=== PATIENT | female | born 1990 | race African-American/Black ===

== ENCOUNTER 2024-05-19 08:48 | Emergency (ER) | payer OTHER ==
[2024-05-19 08:57] VITALS: BP 126/86; PULSE 90; RESP 19; TEMP 98.8; BMI 31.3
[2024-05-19] MEDS ORDERED: IBUPROFEN 600 MG TABLET (FP) PO ONE (09:07)
[2024-05-19] MEDS: IBUPROFEN 600 MG TABLET (FP) PO ONE (10:00)
[2024-05-19 12:12] LABS: HIV INTERPRETATION NEGATIVE (NEGATIVE)
== END 2024-05-19 10:08 | disposition home or self-care (01) ==
LOC: FER 08:48
DX: U07.1 COVID-19 (principal); R51.9 Headache, unspecified; R50.9 Fever, unspecified; R05.9 Cough, unspecified; R53.1 Weakness; R09.81 Nasal congestion; B97.4 Respiratory syncytial virus as the cause of diseases classified elsewhere
CPT/HCPCS: 0241U-QW; 36415; 86803; 87389; 99283-25